=== PATIENT | female | born 2000 ===

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

== ENCOUNTER 2022-07-23 15:23 | Emergency (ER) | payer SELFPAY | END 2022-07-23 18:30 | disposition home or self-care (01) | LOC: MW.ED 15:23 | DX: S62.112A Displaced fracture of triquetrum [cuneiform] bone, left wrist, initial encounter for closed fracture (principal); W01.0XXA Fall on same level from slipping, tripping and stumbling without subsequent striking against object, initial encounter; Y93.67 Activity, basketball | CPT/HCPCS: 29125; 73110-26-LT; 73110-LT; 73130-26-LT; 73130-LT; 99283 ==